=== PATIENT | female | born 1975 | race Caucasian/White ===

== ENCOUNTER 2019-09-07 21:30 | Emergency (ER) | payer MEDICAID, OTHER ==
--- NOTE | 2019-09-07 22:20 | NUR ---
CALLED PTS NAME 3X IN WAITING ROOM, BATHROOM AND OUTSIDE. PT NO WHERE TO BE FOUND. PT LWBS.
== END 2019-09-07 22:20 | disposition left against medical advice (07) ==
LOC: SED 21:30
DX: R05 Cough (principal); Z53.21 Procedure and treatment not carried out due to patient leaving prior to being seen by health care provider

== ENCOUNTER 2021-03-17 00:54 | Emergency (ER) | payer MEDICAID, OTHER ==
[~2021-03-17] VITALS: Ht 160 cm; Wt 61.7 kg
[2021-03-17 01:07] VITALS: BP_SYST 132
[2021-03-17] MEDS ORDERED: predniSONE 20 MG TABLET PO ONE (02:00)
[2021-03-17] MEDS ORDERED: IPRATROPIUM/ALBUTEROL SULFATE 3 ML AMPUL.NEB (DUONEB) INH ONE (02:00)
[2021-03-17] MEDS ORDERED: IPRATROPIUM/ALBUTEROL SULFATE 3 ML AMPUL.NEB (DUONEB) ONE (02:01)
[2021-03-17] MEDS ORDERED: PRED20TA PO (02:55)
[2021-03-17] MEDS ORDERED: ALBU90AE INH (02:55)
[2021-03-17] MEDS ORDERED: GUAI600T45 PO (02:55)
[2021-03-17] MEDS ORDERED: PRED50TA PO (07:29)
[2021-03-17] MEDS ORDERED: ALBMDI INH (07:29)
== END 2021-03-17 03:00 | disposition left against medical advice (07) ==
LOC: SED 00:54
DX: J20.9 Acute bronchitis, unspecified (principal); R94.31 Abnormal electrocardiogram [ECG] [EKG]; Z88.1 Allergy status to other antibiotic agents; Z79.899 Other long term (current) drug therapy
CPT/HCPCS: 71046; 93005; 94640; 99283; J7512

== ENCOUNTER 2021-03-17 05:45 | Emergency (ER) | payer MEDICAID ==
[~2021-03-17] VITALS: Ht 160 cm; Wt 72.6 kg
[~2021-03-17 05:45] MED LIST: ALBU90AE INH; GUAI600T45 PO; PRED20TA PO
[2021-03-17 05:47] VITALS: BP_SYST 116
[2021-03-17] MEDS ORDERED: MAGNESIUM SULFATE 50 ML IV ONE ×2 (06:00→06:45)
[2021-03-17] MEDS ORDERED: IPRATROPIUM BROM 0.5 MG/2.5 ML VIAL.NEB (ATROVENT) INH ONE (06:40)
[2021-03-17] MEDS ORDERED: ALBUTEROL SULFATE 0.083% 2.5 MG/3 ML VIAL.NEB INH ONE ×2 (06:40→06:45)
[2021-03-17] MEDS ORDERED: predniSONE 20 MG TABLET PO ONE (06:45)
[2021-03-17 06:52] LABS: ANION GAP 12 (5-15); BASOPHILS % (AUTO) 0.6 % (0.0-2.0); CALCIUM 8.9 mg/dL (8.4-11.0); CHLORIDE 106 mmol/L (98-107); CREATININE 0.73 mg/dL (0.55-1.30); GLUCOSE 122 mg/dL (70-99); HEMATOCRIT 44.2 % (36-48); HEMOGLOBIN 14.5 g/dL (12.0-16.0); LYMPHOCYTES % (AUTO) 12.9 % (20.5-51.5); MEAN CORPUSCULAR HEMOGLOBIN 31 pg (27-31); MEAN CORPUSCULAR HGB CONC 33 % (32-36); MEAN CORPUSCULAR VOLUME 93 fL (79.0-98.0); MONOCYTES # (AUTO) 0.4 K/uL (0.0-1.0); MONOCYTES % (AUTO) 4.8 % (1.7-9.3); NEUTROPHILS # (AUTO) 6.1 K/uL (1.8-7.7); NEUTROPHILS % (AUTO) 81.7 % (40.0-70.0); PLATELET COUNT (AUTO) 235 K/uL (130-430); POTASSIUM 3.7 mmol/L (3.5-5.1); RED BLOOD CELL COUNT(AUTO) 4.75 MIL/uL (4.2-6.2); RED CELL DISTRIBUTION WIDTH 13.8 % (9.0-15.0); SODIUM SERUM 141 mmol/L (136-145); UREA NITROGEN, BLOOD 14 mg/dL (8-21); WHITE BLOOD COUNT (AUTO) 7.5 K/uL (4.8-10.8)
[2021-03-17 06:56] LABS: GFR AFRICAN AMERICAN 111 mL/min (>90)
[2021-03-17 07:00] LABS: ALANINE AMINOTRANSFERASE 42 U/L (12-78); ALBUMIN 3.6 g/dL (3.4-4.8); ASPARTATE AMINOTRANSFERASE 35 U/L (10-37); TOTAL BILIRUBIN 0.1 mg/dL (0.0-1.0)
[2021-03-17] MEDS ORDERED: PRED50TA PO (07:29)
[2021-03-17] MEDS ORDERED: ALBMDI INH (07:29)
[2021-03-17 07:55] VITALS: BP_SYST 116
== END 2021-03-17 07:56 | disposition home or self-care (01) ==
LOC: SED 05:45
DX: J45.909 Unspecified asthma, uncomplicated (principal); F17.210 Nicotine dependence, cigarettes, uncomplicated; Z88.1 Allergy status to other antibiotic agents; Z79.899 Other long term (current) drug therapy
CPT/HCPCS: 36415; 80053; 83605; 83735; 84484; 85025; 86140; 96365; 99284; J3475; J7613